=== PATIENT | male | born 1970 | race Hispanic/Latino ===

== ENCOUNTER 2021-02-10 05:06 | Emergency (ER) | payer OTHER ==
[2021-02-10] MEDS ORDERED: CLONIDINE HCL 0.1 MG TAB PO ONE (05:30)
[2021-02-10] MEDS ORDERED: CLONIDINE HCL 0.1 MG TAB ONE (05:39)
== END 2021-02-10 06:18 | disposition home or self-care (01) ==
LOC: ER 05:31
DX: I10 Essential (primary) hypertension (principal)
CPT/HCPCS: 99283